=== PATIENT | male | born 1980 | race Caucasian/White ===

== ENCOUNTER 2019-06-28 16:58 | Emergency (ER) | payer SELFPAY ==
[2019-06-28] MEDS ORDERED: Sodium Chloride 0.9% 1,000 ML ONE (17:39)
[2019-06-28 17:54] LABS: #Basophils 0.1 thou/uL (0.0-0.2); #Eosinphils 0.1 thou/uL (0.0-0.7); #Lymphocytes 1.8 thou/uL (1.20-3.40); #Monocytes 0.4 thou/uL (0.11-0.59); #Neutrophils 6.1 thou/uL (1.40-6.50); %Basophils 1.2 % (0.0-1.0); %Eosinophils 1.4 % (0.0-10.0); %Lymphocytes 20.6 % (21.0-51.0); %Neutrophils 71.8 % (42.0-75.0); Hemoglobin 15.9 g/dL (14.0-18.0); Mean Corpuscular HGB CONC 32.7 g/dL (32.0-36.0); Mean Corpuscular Hemoglobin 29.6 pg (27.0-31.0); Mean Corpuscular Volume 90.4 fL (78.0-98.0); Mean Platelet Volume 7.3 fL (7.4-10.4); Platelet Count 274 thou/uL (130-400); RBC Distribution Width 11.5 % (11.5-14.5); Red Blood Cell (RBC) Count 5.36 mill/uL (4.70-6.10); White Blood Cell (WBC) Count 8.5 thou/uL (4.8-10.8)
[2019-06-28 18:12] LABS: ALT (SGPT) 11 U/L (8-55); AST (SGOT) 12 U/L (5-34); Albumin 4.6 g/dL (3.5-5.0); Alkaline Phosphatase 102 U/L (40-150); Anion Gap 16 mmol/L (10-20); BUN (Urea Nitrogen) 12 mg/dL (8.9-20.6); Bilirubin, Total 0.5 mg/dL (0.2-1.2); CK (CPK) 64 U/L (30-200); Calc. Creatinine Clearance 0 mL/min (70-130); Calcium 9.8 mg/dL (7.8-10.44); Carbon Dioxide 24 mmol/L (22-29); Chloride 105 mmol/L (98-107); Estimated GFR-MDRD Greater than 90; Globulin 3.2 g/dL (2.4-3.5); Glucose 91 mg/dL (70-105); Magnesium 1.8 mg/dL (1.6-2.6); Potassium 3.8 mmol/L (3.5-5.1); Protein, Total 7.8 g/dL (6.0-8.3); Sodium 141 mmol/L (136-145)
--- NOTE | 2019-06-28 18:16 | RAD ---
2 views of the chest: 06/28/2019 COMPARISON: None HISTORY: Cough FINDINGS: There is mild diffuse increased linear interstitial density with pulmonary hyperinflation. There is no pneumothorax, pleural fluid, focal consolidation, or alveolar edema. There is mild pleural thickening in the right lung apex. A small nodule in the right lung apex measuring in the 7-8 mm range cannot be excluded. IMPRESSION: Mild interstitial prominence and pulmonary hyperinflation. Possible tiny nodule within ri ght lung apex for which follow-up chest radiograph is advised in 3-6 months. CODE T
== END 2019-06-28 19:20 | disposition home or self-care (01) ==
LOC: MADERS 16:58
DX: J18.9 Pneumonia, unspecified organism (principal); F17.210 Nicotine dependence, cigarettes, uncomplicated
CPT/HCPCS: 36416; 71046; 80053; 82550; 83735; 85025; 87804; 96360; J7050

== ENCOUNTER 2020-02-06 20:00 | Emergency (ER) | payer SELFPAY ==
[2020-02-06] MEDS ORDERED: Loperamide HCl 2 MG CAP ONE (20:31)
[2020-02-06] MEDS ORDERED: Ondansetron ODT 4 MG TAB ONE (20:31)
== END 2020-02-06 20:35 | disposition home or self-care (01) ==
LOC: MADERS 20:00
DX: B34.9 Viral infection, unspecified (principal); F17.210 Nicotine dependence, cigarettes, uncomplicated
CPT/HCPCS: 99283; Q0162

== ENCOUNTER 2020-07-09 00:53 | Emergency (ER) | payer SELFPAY ==
[2020-07-09 01:37] LABS: #Basophils 0.2 thou/uL (0.0-0.2); #Eosinphils 0.3 thou/uL (0.0-0.7); #Lymphocytes 1.6 thou/uL (1.20-3.40); #Monocytes 0.9 thou/uL (0.11-0.59); #Neutrophils 12.8 thou/uL (1.40-6.50); %Basophils 1.2 % (0.0-1.0); %Eosinophils 2.2 % (0.0-10.0); %Lymphocytes 10.3 % (21.0-51.0); %Monocytes 5.7 % (0.0-10.0); %Neutrophils 80.7 % (42.0-75.0); Hemoglobin 13.5 g/dL (14.0-18.0); Mean Corpuscular HGB CONC 32.2 g/dL (32.0-36.0); Mean Corpuscular Hemoglobin 30.3 pg (27.0-31.0); Mean Corpuscular Volume 94.1 fL (78.0-98.0); Mean Platelet Volume 6.3 fL (7.4-10.4); Platelet Count 271 thou/uL (130-400); RBC Distribution Width 11.3 % (11.5-14.5); Red Blood Cell (RBC) Count 4.47 mill/uL (4.70-6.10); White Blood Cell (WBC) Count 15.8 thou/uL (4.8-10.8)
[2020-07-09] MEDS ORDERED: Ketorolac Tromethamine 30 MG/ML VIAL ONE (01:44)
[2020-07-09 01:56] LABS: ALT (SGPT) 16 U/L (8-55); AST (SGOT) 14 U/L (5-34); Alkaline Phosphatase 87 U/L (40-110); Anion Gap 13 mmol/L (10-20); BUN (Urea Nitrogen) 14 mg/dL (8.9-20.6); Bilirubin, Total 0.2 mg/dL (0.2-1.2); Calc. Creatinine Clearance 0 mL/min (70-130); Calcium 8.9 mg/dL (7.8-10.44); Carbon Dioxide 28 mmol/L (22-29); Chloride 103 mmol/L (98-107); Estimated GFR-MDRD 76; Globulin 2.5 g/dL (2.4-3.5); Glucose 114 mg/dL (70-105); Potassium 3.9 mmol/L (3.5-5.1); Protein, Total 6.5 g/dL (6.0-8.3); Sodium 140 mmol/L (136-145)
--- NOTE | 2020-07-09 07:35 | RAD ---
CHEST 2 VIEWS: INDICATION: Left rib and left lung pain. COMPARISON: Prior exam dated 06/28/2019. FINDINGS: There is airspace disease in the region of the lingula which may reflect developing pneumonia. Thee right lung is clear. Pleural and parenchymal scarring is similar-appearing. Heart size is normal-ap pearing. No acute osseous abnormality is evident. IMPRESSION: Airspace disease in the lingula is new and may reflect area of developing pneumonia. Radiographic fo llowup to resolution is recommended. POS: BH
== END 2020-07-09 02:13 | disposition home or self-care (01) ==
LOC: MADERS 00:53
DX: I30.9 Acute pericarditis, unspecified (principal); R05 Cough; F17.210 Nicotine dependence, cigarettes, uncomplicated
CPT/HCPCS: 71046; 80053; 83880; 84484; 85025; 85379; 93005; 94760; 96374; 99406; J1885

== ENCOUNTER 2020-07-11 16:05 | Emergency (ER) | payer OTHER, SELFPAY ==
[2020-07-11] MEDS ORDERED: Ibuprofen 800 MG TAB ONE (16:47)
[2020-07-11 17:23] LABS: #Basophils 0.1 thou/uL (0.0-0.2); #Eosinphils 0.1 thou/uL (0.0-0.7); #Lymphocytes 0.6 thou/uL (1.20-3.40); #Monocytes 0.9 thou/uL (0.11-0.59); %Basophils 0.7 % (0.0-1.0); %Eosinophils 0.6 % (0.0-10.0); %Lymphocytes 4.6 % (21.0-51.0); %Monocytes 6.3 % (0.0-10.0); %Neutrophils 87.8 % (42.0-75.0); Hemoglobin 12.4 g/dL (14.0-18.0); Mean Corpuscular HGB CONC 32.9 g/dL (32.0-36.0); Mean Corpuscular Hemoglobin 30.1 pg (27.0-31.0); Mean Corpuscular Volume 91.5 fL (78.0-98.0); Mean Platelet Volume 7.4 fL (7.4-10.4); Platelet Count 191 thou/uL (130-400); RBC Distribution Width 10.8 % (11.5-14.5); Red Blood Cell (RBC) Count 4.13 mill/uL (4.70-6.10); White Blood Cell (WBC) Count 13.7 thou/uL (4.8-10.8)
[2020-07-11 17:30] LABS: ALT (SGPT) 12 U/L (8-55); AST (SGOT) 9 U/L (5-34); Albumin 3.7 g/dL (3.5-5.0); Alkaline Phosphatase 76 U/L (40-110); Anion Gap 18 mmol/L (10-20); BUN (Urea Nitrogen) 12 mg/dL (8.9-20.6); Bilirubin, Total 0.2 mg/dL (0.2-1.2); Calc. Creatinine Clearance 0 mL/min (70-130); Calcium 8.1 mg/dL (7.8-10.44); Carbon Dioxide 22 mmol/L (22-29); Chloride 97 mmol/L (98-107); Estimated GFR-MDRD 82; Globulin 2.3 g/dL (2.4-3.5); Glucose 137 mg/dL (70-105); Potassium 3.5 mmol/L (3.5-5.1); Sodium 133 mmol/L (136-145)
--- NOTE | 2020-07-11 17:42 | RAD ---
Chest one view HISTORY: Pneumonia. COMPARISON: 07/09/2020. FINDINGS: Left cardiac margin now more obscured by infiltrate within the lingula. Mild patchy bibasil ar infiltrates also present. Mediastinum is midline. Pulmonary vasculature are unremarkable. Upper lungs are clear. No evidence of pneumothorax. IMPRESSION : Lingular pneumonia. Possibly superimposed mild bibasilar infiltrates.
[2020-07-12 18:54] LABS: SARS-CoV-2 MS2 Positive; SARS-CoV-2 N Gene Negative; SARS-CoV-2 S Gene Negative; SARS-CoV-2 by NAA Not Detected (NotDetected); SARS-CoV-2 orf1ab Negative
== END 2020-07-11 18:00 | disposition home or self-care (01) ==
LOC: MADERS 16:05
DX: J18.9 Pneumonia, unspecified organism (principal); F17.210 Nicotine dependence, cigarettes, uncomplicated; Z20.828 Contact with and (suspected) exposure to other viral communicable diseases
CPT/HCPCS: 71045; 80053; 83605; 84484; 85025; 87040; 87635; 93005; U0003

== ENCOUNTER 2020-10-08 09:31 | Emergency (ER) | payer SELFPAY | END 2020-10-08 10:26 | disposition home or self-care (01) | LOC: MADERS 09:31 | DX: H60.92 Unspecified otitis externa, left ear (principal); F17.210 Nicotine dependence, cigarettes, uncomplicated | CPT/HCPCS: 99282 ==

== ENCOUNTER 2022-04-01 07:58 | Emergency (ER) | payer SELFPAY ==
[2022-04-01] MEDS ORDERED: Tetracaine 0.5% PF 4 ML BOT ONE (08:15)
[2022-04-01] MEDS ORDERED: Fluorescein Opthalmic Strip ONE (08:15)
[2022-04-01] MEDS ORDERED: Erythromycin Base 0.5% Ophth Oint 3.5 gm Tube ONE (08:35)
== END 2022-04-01 08:50 | disposition home or self-care (01) ==
LOC: MADERS 07:58
DX: T15.02XA Foreign body in cornea, left eye, initial encounter (principal); F17.210 Nicotine dependence, cigarettes, uncomplicated
CPT/HCPCS: 65220

== ENCOUNTER 2023-01-21 15:20 | Emergency (ER) | payer SELFPAY ==
[2023-01-21] MEDS ORDERED: Ipratropium/Albuterol 3 ML NEB ONE (16:36)
== END 2023-01-21 17:25 | disposition home or self-care (01) ==
LOC: MADERS 15:20
DX: J18.9 Pneumonia, unspecified organism (principal); F17.210 Nicotine dependence, cigarettes, uncomplicated
CPT/HCPCS: 71045; J7620